=== PATIENT | female | born 1955 | race Caucasian/White ===

== ENCOUNTER 2019-07-18 18:00 | Emergency (ER) | payer OTHER ==
[~2019-07-18] VITALS: Ht 162.6 cm; Wt 65.3 kg
[2019-07-18] MEDS ORDERED: Roxicodone5 MG PO (19:46)
== END 2019-07-18 20:08 | disposition home or self-care (01) ==
LOC: ER 18:00
DX: S82.045A Nondisplaced comminuted fracture of left patella, initial encounter for closed fracture (principal); W19.XXXA Unspecified fall, initial encounter
CPT/HCPCS: 29505; 73564; 99283-25